=== PATIENT | female | born 1985 ===

== ENCOUNTER 2021-06-25 20:15 | Emergency (ER) | payer OTHER ==
[2021-06-25] MEDS ORDERED: Ondansetron 4 MG/2 ML SDV IVPUSH PRN (20:25)
[2021-06-25] MEDS ORDERED: fentaNYL 50 MCG/ML SDV IVPUSH ONE (20:38)
[2021-06-25] MEDS ORDERED: Ondansetron 4 MG/2 ML SDV ONE (20:54)
--- NOTE | 2021-06-25 21:05 | EDM.PDOC ---
ED HPI GENERAL MEDICAL PROBLEM - General Chief Complaint: Head Injury Stated Complaint: hit 0n head with bed frame Time Seen by Provider: 06/25/21 20:25 Source of Information: Reports: Patient History Limitations: Reports: No Limitations - History of Present Illness INITIAL COMMENTS - FREE TEXT/NARRATIVE: This is a 36 year old female that presents to the ED with complaints of head and neck pain. Patient states that she was moving a mattress on a canopy bed when the canopy came apart and struck her on the back right side of her head. Patient states that her daughter was helping her and she had said she was "knocked out" for about a minute. Patient states she remembers being stuck between a mattress and a wall. Reporting severe pain the back of the head and neck. Has associated nausea and dry heaving on arrival. Alert and oriented x 3. GCS 15. CMS intact x4. Ambulated then placed in a wheelchair in the ER. Nurse applied a c-collar upon arrival. Denies back pain, SOB, or other injuries. Onset: Sudden Location: Reports: Head, Neck Quality: Reports: Sharp Severity: Severe Improves with: Reports: None Worsens with: Reports: None Associated Symptoms: Reports: Nausea/Vomiting Left Posterior Head Pain Score (Numeric/FACES): 10 - Related Data Allergies Allergy/AdvReac Type Severity Reaction Status Date / Time Penicillins Allergy Anaphylactic Verified 06/25/21 20:29 Shock Home Meds: Home Meds Cyclobenzaprine [Flexeril] 10 mg PO TID PRN #30 tab 06/25/21 [Rx] Ondansetron [Zofran ODT] 4 mg PO Q6H PRN #30 tab.dis 06/25/21 [Rx] Past Medical History - Infectious Disease History Infectious Disease History: Reports: None - Past Surgical History GI Surgical History: Reports: Appendectomy Female Surgical History: Reports: Tubal Ligation Social & Family History - Family History Family Medical History: No Pertinent Family History ED ROS GENERAL - Review of Systems Review Of Systems: See Below Constitutional: Denies: Fever, Chills HEENT: Denies: Vision Change Respiratory: Denies: Shortness of Breath, Wheezing, Cough Cardiovascular: Denies: Chest Pain Endocrine: Reports: No Symptoms GI/Abdominal: Reports: Nausea, Other (dry heaves) : Reports: No Symptoms Musculoskeletal: Reports: Neck Pain Skin: Reports: No Symptoms Neurological: Reports: Headache. Denies: Confusion Psychiatric: Reports: No Symptoms Hematologic/Lymphatic: Reports: No Symptoms Immunologic: Reports: No Symptoms ED EXAM, HEAD INJURY - Physical Exam Exam: See Below Exam Limited By: No Limitations General Appearance: Alert, WD/WN, Moderate Distress Head: Normocephalic, Scalp Tenderness (right posterior). No: Scalp Abrasions, Active Bleeding, Mckay's Sign, Facial Ecchymosis, Facial Swelling, Raccoon Eyes Eyes: Bilateral Eye: PERRL Ears: Normal External Exam, Hearing Grossly Normal Nose: Normal Inspection, No Blood. No: Nasal Discharge Throat/Mouth: Normal Inspection, Normal Voice, No Airway Compromise Neck: Spinous Processes Tender, Stiff Neck Respiratory: Lungs Clear, Normal Breath Sounds. No: Respiratory Distress, Crackles, Rales, Rhonchi, Wheezing Cardiovascular: Regular Rate, Rhythm, No Gallop, No Murmur, No Rub GI/Abdominal Exam: Soft, Non-Tender (Female) Exam: Deferred Rectal (Female) Exam: Deferred Back Exam: Normal Inspection. No: Paraspinal Tenderness, Vertebral Tenderness Extremities: Normal Inspection, Normal Range of Motion, Non-Tender Neurologic: No Motor/Sensory Deficits, Alert, Oriented x 3 Skin: Normal Color, Warm/Dry - Christina Coma Score Best Eye Response ([place]): (4) Open Spontaneously Best Verbal Response (Christina): (5) Oriented Best Motor Response (Christina): (6) Obeys Commands Course - Vital Signs Last Recorded V/S: Last Vital Signs Temp 99.6 F 06/25/21 20:17 Pulse 115 H 06/25/21 20:17 Resp 18 06/25/21 20:17 BP 127/68 06/25/21 20:17 Pulse Ox 94 L 06/25/21 20:17 - Orders/Labs/Meds Orders: Active Orders 24 hr Category Date Time Status Cervical Spine wo Cont [CT] Stat Exams 06/25/21 20:30 Ordered Head wo Cont [CT] Stat Exams 06/25/21 20:30 Ordered Ondansetron [Zofran] Med 06/25/21 20:25 Active 4 mg IVPUSH Q6H PRN Medication Orders Ondansetron HCl (Ondansetron 4 Mg/2 Ml Sdv) 4 mg IVPUSH Q6H PRN PRN Reason: Nausea/Vomiting Last Admin: 06/25/21 20:40 Dose: 4 mg Documented by: CONNIE Andrea: Medications Generic Name Dose Route Start Last Admin Trade Name Reji PRN Reason Stop Dose Admin Ondansetron HCl 4 mg 06/25/21 20:25 06/25/21 20:40 Ondansetron 4 Mg/2 Ml Sdv IVPUSH 4 mg Q6H PRN Administration Nausea/Vomiting Discontinued Medications Generic Name Dose Route Start Last Admin Trade Name Reji PRN Reason Stop Dose Admin Fentanyl 50 mcg 06/25/21 20:38 06/25/21 20:50 Fentanyl 50 Mcg/Ml Sdv IVPUSH 06/25/21 20:39 50 mcg ONETIME ONE Administration Ondansetron HCl Confirm 06/25/21 20:54 Ondansetron 4 Mg/2 Ml Sdv Administered 06/25/21 20:55 Dose 4 mg .ROUTE .[facility] ONE - Re-Assessments/Exams Free Text/Narrative Re-Assessment/Exam: This is a 36 year old female that presents to the ED with blunt force injury from bed canopy to the head and neck. Positive LOC according to her daughter. GCS 15 while in the ED. An IV was established and was given 4 mg Zofran for nausea and dry heaves. 50 mcg fentanyl administered IVP for head and neck pain. A CT of the head and neck were completed. I personally reviewed the CT images and see no evidence of acute bleeding, fractures, or dislocations. Radiology confirmed these findings. Radiologist did state an area of nonspecific straightening in the c-spine films that may indicated muscular spasm. Most likely patient with concussion and contusion to the head. Plan will be to discharge home. Head injury information given to the patient. Will send home with Zofran ODT for nausea and Flexeril for muscle spasm. Patient may take Tylenol for pain for 1000 mg every 8 hours for the next 48 hours. After 48 hours may add ibuprofen. If develops slurred speech, weakness on one side, seizures, or unable to arouse, or other concerning symptoms she should be reevaluated in the emergency department. Instructed to rest and not overstimulate the brain. May follow-up with primary care if symptoms not improving. Departure - Departure Time of Disposition: 21:36 Disposition: Home, Self-Care 01 Condition: Good Clinical Impression: Concussion injury of brain - Discharge Information *PRESCRIPTION DRUG MONITORING PROGRAM REVIEWED*: Not Applicable *COPY OF PRESCRIPTION DRUG MONITORING REPORT IN PATIENT GRETCHEN: Not Applicable Instructions: Head Injury, Adult, Concussion, Adult Additional Instructions: 1. Education provide regarding head injury and concussion. 2. May take Tylenol 1000 mg by mouth three times per day for the next 48 hours. After 48 hours you may add ibuprofen. 3. A prescription for Zofran ODT sent to pharmacy. May take this for nausea as needed every 6 hours. 4. A prescription for Flexeril sent to the pharmacy. May take this for muscles spasms as needed up to three times per day. 4. If you have weakness on one side of body, slurred speech, seizure, or any other concerning symptoms return to the ER. 5. Rest for the next few days and avoid overstimulation of the brain (avoid cell phone, TV, etc) 6. Follow-up with primary care provider is symptoms are not improving in the next few days. Sepsis Event Note (ED) - Evaluation Sepsis Screening Result: No Definite Risk - Focused Exam Vital Signs: Vital Signs Temp Pulse Resp BP Pulse Ox 06/25/21 20:17 99.6 F 115 H 18 127/68 94 L - My Orders Last 24 Hours: My Active Orders 06/25/21 20:25 Ondansetron [Zofran] 4 mg IVPUSH Q6H PRN - Assessment/Plan Last 24 Hours: My Active Orders 06/25/21 20:25 Ondansetron [Zofran] 4 mg IVPUSH Q6H PRN
[2021-06-25] MEDS ORDERED: Take Home: Ondansetron 4 MG Tab.DIS, 2 Tab Pack PO ONE (21:38)
[2021-06-25] MEDS ORDERED: Take Home: Cyclobenzaprine 10 MG Tab, 4 Tab Pack PO ONE (21:38)
== END 2021-06-25 22:00 | disposition home or self-care (01) ==
LOC: CC.ED 20:15
DX: S06.0X1A Concussion with loss of consciousness of 30 minutes or less, initial encounter (principal); Z88.0 Allergy status to penicillin; W22.8XXA Striking against or struck by other objects, initial encounter
CPT/HCPCS: 70450; 72125; 96374; 96375; 99284; A9270; J2405; J3010